=== PATIENT | female | born 1950 | race Caucasian/White ===

== ENCOUNTER 2023-04-13 13:07 | Inpatient (IN) | payer MEDICARE, OTHER, SELFPAY ==
[2023-04-13] VITALS (10 sets, daily range): BP systolic 135–184; BP diastolic 90–115; PULSE 60–72; RESP 13–18; TEMP 36.2–37.1; O2SAT 90–99; BMI 21.0; BMI 22.4
--- NOTE | 2023-04-13 13:41 | CRLHL7_ITS ---
For Patients: As a result of the Century Cures Act, medical imaging exams and procedure reports are released immediately into your electronic medical record. You may view this report before your referring provider. If you have questions, please contact your health care provider. Indication: Syncope. Technique: PA and lateral (2) views of the chest. Comparison: None available Findings: Normal heart and mediastinum. Lungs and pleural spaces clear. No acute or aggressive osseous abnormality. Impression: Normal chest radiograph. Dictated by Sohan Calvo MD @ 04/13/2023 2:41:24 PM (Electronically Signed)
--- NOTE | 2023-04-13 13:54 | ED_ITS ---
HPI - General Adult General Time Seen by Provider: 13:54 Date Seen: 04/13/23 Chief complaint: Syncope/Fainted Stated complaint: hypertension, vertigo, fainting Time Seen by Provider: 04/13/23 13:27 Source: patient and family () Mode of arrival: ambulatory Limitations: no limitations History of Present Illness HPI narrative: Patient is a 72-year-old female with no pertinent medical problems presenting to the emergency department for fatigue and syncope. Patient states over the past 3 weeks she has been feeling fatigued and lightheaded. She has had 4 episodes of syncope. Two were unwitnessed. Her states for the unwitnessed once he walked into the room and found her on the ground unresponsive. Unsure how long she was down for. He was therefore her 2 other syncopal episodes. Both time she became unconscious for only a few seconds in the [place] and helped her to the ground. She does of proceeding lightheadedness before these for falls o ccur. She has a appointment scheduled with a primary care provider next week. Should she has fallen onto her left hip in left ribs but states there is only minimal pain at this time. There is large bruising. Patient denies ever having symptoms like this before. She does states she had fatigue similar to this in the past where she was told she had gastric ulcers and low hemoglobin. She did not have syncope at that time though. Denies chest pain, shortness of breath, abdominal pain, diarrhea, constipation, fevers, chills, headache, vision changes, numbness, weakness. Does admit to some nausea at this time Related Data Allergies Allergy/AdvReac Type Severity Reaction Status Date / Time No Known Drug Allergies Allergy Verified 04/13/23 13:17 Review of Systems Status of ROS: Reports: 10 or more systems reviewed and unremarkable except as noted in History and below [facility] Medical History (Updated 04/13/23 @ 16:01 by Dominik Suggs, DO) Fatigue ?R53.83 - Other fatigue (ICD-10) Nausea ?R11.0 - Nausea (ICD-10) Anemia ?D64.9 - Anemia, unspecified (ICD-10) Hypertension ?I10 - Essential (primary) hypertension (ICD-10) Social History Smoking Status: Never smoker Do you use any of these nicotine containing products: None Second hand tobacco smoke exposure: No How often do you have a drink containing alcohol: never AUDIT-C Alcohol total score: 0 Non-prescribed substance use: denies use Exam Narrative: Exam Narrative: Const: Well-nourished, Well-developed, in mild distress Eyes: PERRL, no conjunctival injection, and symmetrical lids ENMT: Atraumatic external nose and ears. Moist mucous membranes. Neck: Symmetric, trachea midline, No thyromegaly. CVS: RRR, No murmurs or gallops. Peripheral pulses 2+ and equal in all extremities RESP: Unlabored respiratory effort. Clear to auscultation bilaterally. GI: Nontender/Nondistended, No rebound or guarding. MSK:Extremities w/o deformity, Normal Active ROM Skin: Warm, Dry. Large bruise 0 0 left hip and bruising also noted to left lateral lower ribs Neuro: Normal Muscle tone, No focal neurological deficits. Psych: Awake, Alert, & Oriented x3. Appropriate mood and affect. Const: Vital Signs, click to edit/add: Vital Signs - 24 hr 04/13/23 13:18 04/13/23 13:30 04/13/23 14:00 Temperature 97.5 F L Pulse Rate [Pulse Oximeter] 67 69 66 Pulse Rate [orthos tatic lying Left P ulse Oximeter] Pulse Rate [orthos tatic sitting Left Pulse Oximeter] Pulse Rate [orthos tatic standing Pul se Oximeter] Respiratory Rate 18 13 14 Blood Pressure [Le ft Upper Arm] 171/103 H 152/99 H 147/99 H Blood Pressure [or thostatic lying Le ft Arm] Blood Pressure [or thostatic sitting Left Arm] Blood Pressure [or thostatic standing Left Arm] Pulse Oximetry 99 98 95 Oxygen Delivery Me thod Room Air Room Air Room Air 04/13/23 14:15 04/13/23 14:22 04/13/23 14:30 Temperature Pulse Rate [Pulse Oximeter] 63 64 Pulse Rate [orthos tatic lying Left P ulse Oximeter] 62 Pulse Rate [orthos tatic sitting Left Pulse Oximeter] 65 Pulse Rate [orthos tatic standing Pul se Oximeter] 70 Respiratory Rate 16 17 Blood Pressure [Le ft Upper Arm] 163/98 H 135/100 H Blood Pressure [or thostatic lying Le ft Arm] 163/98 H Blood Pressure [or thostatic sitting Left Arm] 156/103 H Blood Pressure [or thostatic standing Left Arm] 135/100 H Pulse Oximetry 95 97 Oxygen Delivery Me thod Room Air Room Air Course Vital Signs Vital signs: Initial Vital Signs Temperature 97.5 F L 04/13/23 13:18 Temperature Source Temporal Artery Scan 04/13/23 13:18 Pulse Rate 67 04/13/23 13:18 Pulse Rhythm Regular 04/13/23 13:18 Respiratory Rate 18 04/13/23 13:18 Blood Pressure 171/103 H 04/13/23 13:18 Blood Pressure Mean 125 H 04/13/23 13:18 Blood Pressure Position Supine 04/13/23 13:18 Pulse Oximetry 99 04/13/23 13:18 Oxygen Delivery Method Room Air 04/13/23 13:18 Vital Signs Temperature 97.5 F L 04/13/23 13:18 Pulse Rate 67 04/13/23 13:18 Respiratory Rate 18 04/13/23 13:18 Blood Pressure 171/103 H 04/13/23 13:18 Pulse Oximetry 99 04/13/23 13:18 Oxygen Delivery Method Room Air 04/13/23 13:18 Temperature 97.5 F L 04/13/23 13:18 Pulse Rate 64 04/13/23 14:30 Respiratory Rate 17 04/13/23 14:30 Blood Pressure 135/100 H 04/13/23 14:30 Pulse Oximetry 97 04/13/23 14:30 Oxygen Delivery Method Room Air 04/13/23 14:30 Medical Decision Making MDM Narrative Medical decision making narrative: Patient is a 72-year-old female with no pertinent medical issues presented emergency department for multiple episodes of syncope. She is on steroids causing his syncope and gone for the past 3 weeks she has also been having fatig ue. She has fallen 4 times in that time secondary to the syncope. She has never had syncope before. No known heart issues. CBC, CMP, troponin, EKG, chest x-ray were all ordered. Also ordered orthostatic blood pressures. Patient's EKG showed no concerning abnormalities. Patient's orthostatic blood pressures were positive and fluids were started. Before fluids were started though her sodium returned at 01:23. Restart her on normal saline 150 mL/hr. I then ordered urinalysis with urine sodium, urine osmolality, urine creatinine and along with serum osmolality insert magnesium and phosphorus. Patient's magnesium is slightly low. I am unsure why the patient has low sodium. Chest x-ray shows no signs of tumors. Patient be admitted to the hospitalist service for admission. She is agreeable to this plan Lab Data Labs: Lab Results 04/13/23 04/13/23 Range/Units 13:50 14:56 WBC 4.86 (4.50-11.00) K/uL RBC 3.51 L (4.00-5.20) m/uL Hgb 12.0 (12.0-16.0) gm/dL Hct 34.6 (33.0-51.0) % MCV 99 (80-100) fL MCH 34 (26-34) pg MCHC 35 (32-36) gm/dL RDW Coeff of Brianda 12.4 (11.5-15.5) % Plt Count 159 (140-440) K/uL Neut % (Auto) 62.0 (42.0-72.0) % Lymph % (Auto) 21.2 (20-44) % [place] % (Auto) 15.4 H (0.0-11.0) % Eos % (Auto) 0.6 (0.0-7.0) % Baso % (Auto) 0.2 (0.0-3.0) % Neut # (Auto) 3.01 (1.7-7.0) K/uL Lymph # (Auto) 1.03 (0.90-2.90) K/uL [place] # (Auto) 0.70 (0.00-0.90) K/UL Eos # (Auto) 0.03 (0.00-0.50) K/uL Baso # (Auto) 0.01 (0.00-0.30) K/uL Abs Immat Gran (auto) 0.03 (0.00-0.30) K/uL Imm/Tot Granulo (auto) 0.6 % Sodium 123 L* (135-149) mmol/L Potassium 4.2 (3.6-5.1) mmol/L Chloride 90 L (96-114) mmol/L Carbon Dioxide 24 (20-32) mmol/L BUN 8 (7-30) mg/dL Creatinine 0.7 (0.5-1.5) mg/dL Estimated Creat Clear 45.95 Estimated GFR 91 ml/min Glucose 103 (60-115) mg/dL Calcium 9.5 (8.4-10.6) mg/dL Phosphorus 4.1 (2.5-4.5) mg/dL Magnesium 1.2 L (1.5-2.6) mg/dL Total Bilirubin 1.1 (0.1-1.5) mg/dL AST 141 H (12-35) U/L ALT 84 H (4-35) U/L Alkaline Phosphatase 73 (40-150) U/L Troponin I < 0.01 L (0.01-0.04) ng/mL NT-Pro-B Natriuret Pep 483 pg/mL Total Protein 7.4 (6.0-8.3) g/dL Albumin 4.3 (3.3-5.0) g/dL TSH 1.820 (0.270-4.20) uIU/mL Urine Color Yellow (Yellow) Urine Appearance Slightly Cloudy A (Clear) Urine pH 7.0 (5.0-8.5) Ur Specific [place] 1.010 (1.000-1.030) Urine Protein Negative (Negative) Urine Glucose (UA) Negative (Negative) Urine Ketones Negative (Negative) Urine Blood Trace-intact A (Negative) Urine Nitrite Negative (Negative) Urine Bilirubin Negative (Negative) Urine Urobilinogen 0.2 (0.2-1.0) Ur Leukocyte Esterase 2+ A (Negative) Urine RBC 2-5 A (0-2) Urine WBC 10-25 A (0-5) Ur Squamous Epith Cells Few (None-Few) Urine Bacteria Many A (None) Ur Random Creatinine 57 mg/dL Lab Acknowledgement Test Added ECG Data Attestation: I personally reviewed and interpreted this ECG as follows: (Normal sinus rhythm, rate of 82 beats per minute, normal intervals, normal axis, no ST or T-wave abnormalities) Discharge Plan Discharge Clinical Impression: Syncope, Acute hyponatremia Patient Disposition: Admitted As Inpatient Condition: Stable Follow Up/Referrals: Eamon Anders MD [Primary Care Provider] -
[2023-04-13 13:55] LABS: Basophils Absolute Auto 0.01 K/uL (0.00-0.30); Basophils Percent Auto 0.2 % (0.0-3.0); Eosinophils Absolute Auto 0.03 K/uL (0.00-0.50); Eosinophils Percent Auto 0.6 % (0.0-7.0); Hematocrit 34.6 % (33.0-51.0); Immature Granulocytes Abs Auto 0.03 K/uL (0.00-0.30); Immature Granulocytes Pct Auto 0.6 %; Lymphocytes Absolute Auto 1.03 K/uL (0.90-2.90); Lymphocytes Percent Auto 21.2 % (20-44); Mean Corpuscular HGB Conc 35 gm/dL (32-36); Mean Corpuscular Hemoglobin 34 pg (26-34); Mean Corpuscular Volume 99 fL (80-100); Monocytes Percent Auto 15.4 % (0.0-11.0); Neutrophils Absolute Auto 3.01 K/uL (1.7-7.0); Platelet Count* 159 K/uL (140-440); RDW Coefficient of Variation % 12.4 % (11.5-15.5); Red Blood Count 3.51 m/uL (4.00-5.20); White Blood Count* 4.86 K/uL (4.50-11.00)
[2023-04-13 13:59] LABS: Slide Review Reflex No
[2023-04-13 14:13] LABS: Albumin* 4.3 g/dL (3.3-5.0); Chloride* 90 mmol/L (96-114)
[2023-04-13 14:14] LABS: Potassium* 4.2 mmol/L (3.6-5.1)
[2023-04-13 14:16] LABS: Alkaline Phosphatase* 73 U/L (40-150); Aspartate Amino Transferase* 141 U/L (12-35); Bilirubin Total* 1.1 mg/dL (0.1-1.5); Blood Urea Nitrogen* 8 mg/dL (7-30); Carbon Dioxide* 24 mmol/L (20-32); Creatinine* 0.7 mg/dL (0.5-1.5); Est. Creatinine Clearance* 45.95; Estimated Glomerular Filt Rate 91 ml/min; Total Protein* 7.4 g/dL (6.0-8.3)
[2023-04-13 14:17] LABS: Alanine Aminotransferase* 84 U/L (4-35); Calcium* 9.5 mg/dL (8.4-10.6); Glucose* 103 mg/dL (60-115)
[2023-04-13 14:28] LABS: NT Pro B Type NatriureticPept* 483 pg/mL
[2023-04-13 14:29] LABS: Sodium* 123 mmol/L (135-149); Troponin I* < 0.01 ng/mL (0.01-0.04)
[2023-04-13] MEDS: 0.9 % SODIUM CHLORIDE 1000 ml 1,000 ML 150 ML IV (14:59)
[2023-04-13 15:10] LABS: Appearance Urine Slightly Cloudy (Clear); Bilirubin Urine Negative (Negative); Blood Urine Trace-intact (Negative); Color Urine Yellow (Yellow); Glucose Urine Negative (Negative); Ketones Urine Negative (Negative); Leukocyte Esterase Urine 2+ (Negative); Nitrite Urine Negative (Negative); Protein Urine Negative (Negative); Urobilinogen Urine 0.2 (0.2-1.0)
[2023-04-13 15:13] LABS: Magnesium* 1.2 mg/dL (1.5-2.6); Phosphorus* 4.1 mg/dL (2.5-4.5)
[2023-04-13 15:36] LABS: Bacteria Urine Many; Squamous Epithelial Cell Urine Few (None-Few)
--- NOTE | 2023-04-13 15:48 | ED.NURSE ---
Hospitalist at bedside.
[2023-04-13 15:59] LABS: Creatinine Urine Random 57 mg/dL
--- NOTE | 2023-04-13 16:30 | ED.NURSE ---
will go to 255. report was given vinay mcintosh.
--- NOTE | 2023-04-13 16:35 | ED.NURSE ---
to 255 via w/c after stopping at the bathroom to void. will start 24 hr creatinine clearance test. Janene mcintosh aware.
[2023-04-13 17:55] LABS: Lipase* 470 U/L (23-300)
[2023-04-13 18:07] LABS: Sodium* 125 mmol/L (135-149)
[2023-04-13] MEDS: PANTOPRAZOLE SODIUM 40 MG INJ IVP (18:52)
[2023-04-13] MEDS: SODIUM CHLORIDE 0.9 % (FLUSH) 10 ML SYRINGE 5 ML IVF ×2 (18:52→20:45)
--- NOTE | 2023-04-13 18:52 | P.IMHP_ITS ---
Hospitalist- H&P: HPI History of Present Illness Time Seen by Provider: 16:00 Date Seen: 04/13/23 Chief complaint: hypertension, vertigo, fainting Narrative: Nunu Pulido is a 72 year old woman who lives at home with her and presents with the 6+ month history of not feeling well with a sense of fatigue, sick feeling in her stomach with intermittent nausea without vomiting, who for the last 2-3 weeks has become increasingly fatigued, with orthostasis, and has had for brief episodes of syncope in association with orthostasis. The syncopal episodes occur only when she attempts to transfer from sitting to standing or while standing and walking. To these were witnessed by her . One of these episodes the found her on the floor shortly after the incident occurred. One of these episodes she was found on the floor and is unclear how long she was on the floor. One of these episodes she landed on her left side and has fairly large bruise on the left side of her chest and abdomen from this. Has had no lacerations. Over the course of the last 2-3 weeks she has noted a sense of increasing fatigue such that when she gets up to move about in the home she then needs to rest before she can get up and move about again. Concurrently she has had the increasing episodes of orthostasis as well. She and her tell me how she has had very little interest in eating over the last 2-3 weeks. She likes to drink water. She typically drinks 5-6 16 oz glasses of water daily. Additionally she drinks 2-6 glasses of alcoholic cocktails daily. There are days when she does not eat at all. She does not weigh herself and is uncertain as to whether not she is gaining or losing weight during this time frame. Denies abdominal pain. Denies hematemesis or hematochezia. Denies melena. Denies any other blood loss. Review of Systems Status of ROS: Reports: 10 or more systems reviewed and unremarkable except as noted in History and below Narrative: Denies fevers, rigors, diaphoresis. Denies lower gastrointestinal tract symptoms. Denies constipation or diarrhea. Denies dysuria, urgency, frequency, hematuria. Denies polyuria, polydipsia, polyphagia. Denies night sweats. Denies focal motor neurologic deficits. I review her outside medical records and see that she has had complications from alcohol abuse for some time. She denies history of alcohol withdrawal. Has attempted to cut back in the past but has not stopped drinking altogether. Has always resumed her increased consumption of alcohol within a relatively short period of time subsequently. Transthoracic echocardiogram obtained on 11/02/2022 demonstrated normal left ventricular chamber size, mildly increased wall thickness, normal global systolic function with calculated ejection fraction of 64%. Remainder of exam unremarkable. This study was obtained in association with patient complaint of orthostasis. Has not had upper gastrointestinal imaging in the past. Has had elevated transaminases in the past. Retired. 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 Lives with her . They have been together for 5 years. His name is Shawn. She designates her son, Carlos Pulido, as her primary power of biochemistry specialist for health should that be required, cell phone [phone]. She designates lily as her secondary power of biochemistry specialist should that be required, cell phone [phone]. She requests full resuscitation in the event of cardiopulmonary demise. She makes it very clear that she does not want to be kept alive in a persistent vegetative state. Indicates Dr. Anders is her primary care physician. [facility] Medical History (Updated 04/13/23 @ 19:24 by Layton Pardo MD) Hypertensive cardiomyopathy ?I11.9 - Hypertensive heart disease without heart failure (ICD-10) ?I43 - Cardiomyopathy in diseases classified elsewhere (ICD-10) Adenomatous colon polyp ?D12.6 - Benign neoplasm of colon, unspecified (ICD-10) Gastric ulcer with hemorrhage ?K25.4 - Chronic or unspecified gastric ulcer with hemorrhage (ICD-10) Abnormal liver enzymes ?R74.8 - Abnormal levels of other serum enzymes (ICD-10) Osteoporosis ?M81.0 - Age-related osteoporosis without current pathological fracture (ICD- 10) Alcohol abuse ?F10.10 - Alcohol abuse, uncomplicated (ICD-10) Essential hypertension ?I10 - Essential (primary) hypertension (ICD-10) Anemia ?D64.9 - Anemia, unspecified (ICD-10) Surgical History (Updated 04/13/23 @ 18:52 by Layton Pardo MD) Status post tonsillectomy ?Z90.89 - Acquired absence of other organs (ICD-10) S/P colonoscopy ?Z98.890 - Other specified postprocedural states (ICD-10) S/P breast lumpectomy ?Z98.890 - Other specified postprocedural states (ICD-10) Social History What is your current living situation?: I presently have a place to live Problems where you live: no known problems Problems where you live details: N/A In the past 12 months, utilities in danger of being shut off: no In the past 12 mos, have been you worried that your food would run out before you had money to buy more?: never true In the past 12 mos, the food you bought just didn't last and you didn't have money to buy more?: never true Smoking Status: Never smoker Do you use any of these nicotine containing products: None Second hand tobacco smoke exposure: No How often do you have a drink containing alcohol: never AUDIT-C Alcohol total score: 0 Non-prescribed substance use: denies use How often does anyone, including family, friends and others, physically hurt you : never How often does anyone, including family, friends and others, insult or talk down to you: never How often does anyone, including family, friends and others, threaten you with harm: never How often does anyone, including family, friends and others, scream or curse at you: never Meds Home Medications and Allergies Home Medications Medication Instructions Recorded Confirmed Type atenolol 25 mg tablet 25 mg PO DAILY 04/13/23 04/13/23 History losartan 100 mg tablet 100 mg PO DAILY 04/13/23 04/13/23 History omeprazole 20 mg capsule,delayed 20 mg PO BID 04/13/23 04/13/23 History release Allergies Allergy/AdvReac Type Severity Reaction Status Date / Time No Known Drug Allergies Allergy Verified 04/13/23 13:17 Exam Narrative: Exam Narrative: I evaluate her in the emergency department. She appears comfortable and in no acute distress. Alert, oriented to self, place, time, situation. Friendly, cooperative, articulate. Mood and affect are congruent. Oddly, she does not seem anxious or frightened about the multiple syncopal episodes that she has had. As best as I can tell she is in today in great measure because her finally forced her to come in for assessment, she previously did not want to be assessed for this at all. Vision and hearing are grossly normal. Normal tympanic membranes bilaterally. Midline nasal septum. Dentition in fair repair. No icterus or conjunctival injection. Pupils are equally round and reactive to light and accommodation. Extraocular muscles are intact. No jaundice, petechiae, or cyanosis. No rashes. Neck is supple. Midline trachea. Normal thyroid. No JVD or hepatojugular reflux. No carotid bruits. No lymphadenopathy in the pre or postauricular chains, anterior or posterior cervical chains, submandibular or submental fossa, supra or infraclavicular fossa, or axilla bilaterally. Lungs are clear to auscultation without wheezing, rhonchi, or rales. No CVA tenderness. No tenderness to palpation over her spine. Ecchymosis along the left side of her chest and abdomen. Heart tones with regular rhythm, normal S1-S2, without murmur, gallop, or rub. PMI is not laterally displaced. Abdomen with active bowel sounds, soft, nontender. No rebound or guarding. No organomegaly or masses. Extremities without edema. Palpable pulses upper and lower extremities. Capillary refill less than 3 seconds upper and lower extremities. No focal motor neurologic deficits. I do not test her standing or walking at this time. Const: Vital Signs, click to edit/add: Vital Signs - 24 hr 04/13/23 13:18 04/13/23 13:30 04/13/23 14:00 Temperature 97.5 F L Pulse Rate Pulse Rate [Left R adial] Pulse Rate [Pulse Oximeter] 67 69 66 Pulse Rate [orthos tatic lying Left P ulse Oximeter] Pulse Rate [orthos tatic sitting Left Pulse Oximeter] Pulse Rate [orthos tatic standing Pul se Oximeter] Respiratory Rate 18 13 14 Blood Pressure [Le ft Arm] Blood Pressure [Le ft Upper Arm] 171/103 H 152/99 H 147/99 H Blood Pressure [or thostatic lying Le ft Arm] Blood Pressure [or thostatic sitting Left Arm] Blood Pressure [or thostatic standing Left Arm] Pulse Oximetry 99 98 95 Oxygen Delivery Me thod Room Air Room Air Room Air 04/13/23 14:15 04/13/23 14:22 04/13/23 14:30 Temperature Pulse Rate Pulse Rate [Left R adial] Pulse Rate [Pulse Oximeter] 63 64 Pulse Rate [orthos tatic lying Left P ulse Oximeter] 62 Pulse Rate [orthos tatic sitting Left Pulse Oximeter] 65 Pulse Rate [orthos tatic standing Pul se Oximeter] 70 Respiratory Rate 16 17 Blood Pressure [Le ft Arm] Blood Pressure [Le ft Upper Arm] 163/98 H 135/100 H Blood Pressure [or thostatic lying Le ft Arm] 163/98 H Blood Pressure [or thostatic sitting Left Arm] 156/103 H Blood Pressure [or thostatic standing Left Arm] 135/100 H Pulse Oximetry 95 97 Oxygen Delivery Me thod Room Air Room Air 04/13/23 16:51 04/13/23 18:32 Temperature 97.2 F L Pulse Rate 60 Pulse Rate [Left R adial] 70 Pulse Rate [Pulse Oximeter] Pulse Rate [orthos tatic lying Left P ulse Oximeter] Pulse Rate [orthos tatic sitting Left Pulse Oximeter] Pulse Rate [orthos tatic standing Pul se Oximeter] Respiratory Rate 16 Blood Pressure [Le ft Arm] 184/115 H Blood Pressure [Le ft Upper Arm] Blood Pressure [or thostatic lying Le ft Arm] Blood Pressure [or thostatic sitting Left Arm] Blood Pressure [or thostatic standing Left Arm] Pulse Oximetry 95 Oxygen Delivery Me thod Room Air Hospitalist - H&P: Result Labs Labs: Short CBC 04/13/23 Range/Units 13:50 WBC 4.86 (4.50-11.00) K/uL Hgb 12.0 (12.0-16.0) gm/dL Hct 34.6 (33.0-51.0) % Plt Count 159 (140-440) K/uL BMP 04/13/23 04/13/23 13:50 17:47 Sodium 123 L* 125 L Potassium 4.2 Chloride 90 L Carbon Dioxide 24 BUN 8 Creatinine 0.7 Glucose 103 Calcium 9.5 Cardiac Enzymes 04/13/23 Range/Units 13:50 Troponin I < 0.01 L (0.01-0.04) ng/mL Liver Function 04/13/23 Range/Units 13:50 Total Bilirubin 1.1 (0.1-1.5) mg/dL AST 141 H (12-35) U/L ALT 84 H (4-35) U/L Alkaline Phosphatase 73 (40-150) U/L Albumin 4.3 (3.3-5.0) g/dL Urine 04/13/23 Range/Units 14:56 Urine Color Yellow (Yellow) Urine Appearance Slightly Cloudy A (Clear) Urine pH 7.0 (5.0-8.5) Ur Specific [place] 1.010 (1.000-1.030) Urine Protein Negative (Negative) Urine Glucose (UA) Negative (Negative) Imaging Chest x-ray: Attestation: I have reviewed the pertinent imaging results. Radiologist's impression: No acute abnormalities. No fractures noted. Assessment and Plan Assessment and plan (1) Acute hyponatremia: Problem comment: Multifactorial: Large volume of water intake, consumption of large volumes of alcohol, poor oral intake of food. Status: Acute (2) Orthostatic hypotension: Status: Acute (3) Syncope: Problem comment: Due to orthostatic hypotension. Status: Acute (4) Nausea: Problem comment: Etiology unclear. Differential diagnosis includes alcohol-induced gastritis, Helicobacter pylori gastropathy, alcoholic hepatitis, alcoholic pancreatitis, etc. Status: Acute (5) Fatigue: Status: Acute (6) Alcoholism: Problem comment: Pre contemplative about seeking help for this. Status: Acute Plan 1. Reviewed impression with patient and her . 2. 1 L of normal saline IV. Recheck serum sodium. 1500 mL fluid restriction daily. Goal to slowly increase serum sodium. 3. CIWA driven protocol for alcohol withdrawal. Initiate gabapentin preemptively 300 mg p.o. b.i.d. in an effort to try to lower risk of alcohol withdrawal. Consider phenobarbital as well. 4. Continue with beta-kinsey and angiotensin receptor kinsey as she is presently on. 5. Telemetry. No need to repeat echocardiogram performed in October of this year. Monitor orthostatic blood pressures and pulses. 6. Initiate thiamine, folate, multivitamin. 7. Physical therapy consultation. 8. Ultrasound of abdomen to assess liver in particular. Consider esophageal gastroduodenoscopy on Saturday. Single dose of pantoprazole 40 mg IV now. Start omeprazole 40 mg every morning. 9. Patient agreeable to above stated plans and recommendations.
[2023-04-13 19:58] LABS: Amphetamine Screen Urine Negative (Negative); Barbiturate Screen Urine Negative (Negative); Benzodiazepines Screen Urine Negative (Negative); Cannabinoid Screen Urine Negative (Negative); Cocaine Screen Urine Negative (Negative); Methadone Screen Urine Negative (Negative); Methamphetamines Screen Urine Negative (Negative); Opiate Screen Urine Negative (Negative); Oxycodone Screen Urine Negative (Negative); Phencyclidine Screen Urine Negative (Negative); Tricyclic Antidepressant Urine Negative (Negative)
[2023-04-13] MEDS: THIAMINE 100 MG TABLET 250 MG PO (20:42)
[2023-04-13] MEDS: GABAPENTIN 300 MG CAPSULE PO (20:43)
[2023-04-14] VITALS (10 sets, daily range): BP systolic 91–164; BP diastolic 72–101; PULSE 62–97; RESP 16–18; TEMP 36.8–37.1; O2SAT 94–96
[2023-04-14] MEDS: OMEPRAZOLE 20 MG CAPSULE DR 40 MG PO (06:36)
[2023-04-14 07:09] LABS: HCO3 VBG 27 mmol/L (21-28); Lactate* 0.6 mmol/L (0.5-1.9); PCO2 VBG 46 mmHG (40-50); PO2 VBG 22.5 mmHG (25-47)
[2023-04-14 07:19] LABS: Hematocrit 34.9 % (33.0-51.0); Hemoglobin* 11.8 gm/dL (12.0-16.0); Mean Corpuscular HGB Conc 34 gm/dL (32-36); Mean Corpuscular Hemoglobin 34 pg (26-34); Mean Corpuscular Volume 101 fL (80-100); Platelet Count* 165 K/uL (140-440); Red Blood Count 3.46 m/uL (4.00-5.20); White Blood Count* 4.84 K/uL (4.50-11.00)
--- NOTE | 2023-04-14 07:21 | PM.IMPN1 ---
Progress Note: A&P Assessment and plan (1) Acute hyponatremia: Problem details: Multifactorial: Large volume of water intake, consumption of large volumes of alcohol, poor oral intake of food. Status: Acute (2) Orthostatic hypotension: Problem details: Persists. Will order echo for 04/15. Status: Acute (3) Syncope: Problem details: Potentially, primarily due to orthostatic hypotension. Status: Acute (4) Nausea: Problem details: Etiology unclear. Differential diagnosis includes alcohol-induced gastritis, Helicobacter pylori gastropathy, alcoholic hepatitis, alcoholic pancreatitis, etc. Status: Acute (5) Fatigue: Problem details: multifactorial Status: Acute (6) Alcoholism: Problem details: Pre contemplative about seeking help for this. Status: Acute (7) Hypomagnesemia: Problem details: Replaced with 4 g over 4 hours this morning. Status: Acute (8) HTN (hypertension): Problem details: Atenolol and losartan from her home list have been continued. Status: Acute Subjective Date Seen: 04/14/23 Interval history: Daily Progress Note - Hospital Medicine Day #: 2 CC: Orthostasis, chronic alcoholism, hypomag, hyponatremia OVERNIGHT UPDATES FROM STAFF & MED, LAB, IMAGING UPDATES Sodium is up trending slowly. One hundred twenty-three, 125, 129. Magnesium is being replaced by IV today. Blood pressures are orthostatic. ultrasound was completed this morning Ultrasound report: Increased echogenicity seen throughout the liver consistent with hepatic steatosis. Otherwise, no acute abnormalities identified. Blood pressure 152/100. Orthostatic left arm standing, drops to 91/77. Pulse 69. Respirations 16. Afebrile. 96% on room air. CBC: Hemoglobin 11.8, MCV 101 Sodium is up to 129. Normal creatinine. Magnesium 1.4 AST, ALT 100/72. Lipase 470 to 401 ECG reviewed Objective: Vitals: see above Lungs: Clear. Cardiac: S1S2. Disposition/Potential discharge - Likely to return to previous living situation. Total time is 35 minutes with greater than 50% spent in counseling and coordination of care. Exam Const: Vital Signs, click to edit/add: Vital Signs - 24 hr 04/13/23 13:18 04/13/23 13:30 04/13/23 14:00 Temperature 97.5 F L Pulse Rate Pulse Rate [Left R adial] Pulse Rate [Pulse Oximeter] 67 69 66 Pulse Rate [orthos tatic lying Left P ulse Oximeter] Pulse Rate [orthos tatic sitting Left Pulse Oximeter] Pulse Rate [orthos tatic standing Pul se Oximeter] Respiratory Rate 18 13 14 Blood Pressure [Le ft Arm] Blood Pressure [Le ft Upper Arm] 171/103 H 152/99 H 147/99 H Blood Pressure [or thostatic lying Le ft Arm] Blood Pressure [or thostatic sitting Left Arm] Blood Pressure [or thostatic standing Left Arm] Pulse Oximetry 99 98 95 Oxygen Delivery Me thod Room Air Room Air Room Air 04/13/23 14:15 04/13/23 14:22 04/13/23 14:30 Temperature Pulse Rate Pulse Rate [Left R adial] Pulse Rate [Pulse Oximeter] 63 64 Pulse Rate [orthos tatic lying Left P ulse Oximeter] 62 Pulse Rate [orthos tatic sitting Left Pulse Oximeter] 65 Pulse Rate [orthos tatic standing Pul se Oximeter] 70 Respiratory Rate 16 17 Blood Pressure [Le ft Arm] Blood Pressure [Le ft Upper Arm] 163/98 H 135/100 H Blood Pressure [or thostatic lying Le ft Arm] 163/98 H Blood Pressure [or thostatic sitting Left Arm] 156/103 H Blood Pressure [or thostatic standing Left Arm] 135/100 H Pulse Oximetry 95 97 Oxygen Delivery Me thod Room Air Room Air 04/13/23 16:51 04/13/23 18:32 04/13/23 19:10 Temperature 97.2 F L Pulse Rate 60 Pulse Rate [Left R adial] 70 Pulse Rate [Pulse Oximeter] Pulse Rate [orthos tatic lying Left P ulse Oximeter] Pulse Rate [orthos tatic sitting Left Pulse Oximeter] Pulse Rate [orthos tatic standing Pul se Oximeter] Respiratory Rate 16 16 Blood Pressure [Le ft Arm] 184/115 H Blood Pressure [Le ft Upper Arm] Blood Pressure [or thostatic lying Le ft Arm] Blood Pressure [or thostatic sitting Left Arm] Blood Pressure [or thostatic standing Left Arm] Pulse Oximetry 95 93 Oxygen Delivery Me thod Room Air Room Air 04/13/23 19:10 04/13/23 22:15 04/13/23 22:15 Temperature 98.8 F Pulse Rate Pulse Rate [Left R adial] 72 72 Pulse Rate [Pulse Oximeter] Pulse Rate [orthos tatic lying Left P ulse Oximeter] Pulse Rate [orthos tatic sitting Left Pulse Oximeter] Pulse Rate [orthos tatic standing Pul se Oximeter] Respiratory Rate 16 16 16 Blood Pressure [Le ft Arm] 137/90 H Blood Pressure [Le ft Upper Arm] Blood Pressure [or thostatic lying Le ft Arm] Blood Pressure [or thostatic sitting Left Arm] Blood Pressure [or thostatic standing Left Arm] Pulse Oximetry 93 90 Oxygen Delivery Me thod Room Air Room Air 04/13/23 22:15 04/14/23 03:05 Temperature 98.5 F 98.4 F Pulse Rate Pulse Rate [Left R adial] 68 62 Pulse Rate [Pulse Oximeter] Pulse Rate [orthos tatic lying Left P ulse Oximeter] Pulse Rate [orthos tatic sitting Left Pulse Oximeter] Pulse Rate [orthos tatic standing Pul se Oximeter] Respiratory Rate 18 16 Blood Pressure [Le ft Arm] 147/94 H 164/101 H Blood Pressure [Le ft Upper Arm] Blood Pressure [or thostatic lying Le ft Arm] Blood Pressure [or thostatic sitting Left Arm] Blood Pressure [or thostatic standing Left Arm] Pulse Oximetry 94 95 Oxygen Delivery Me thod Room Air Room Air Labs Labs: Laboratory Results - last 24 hr 04/13/23 04/13/23 04/13/23 13:50 13:50 14:56 WBC 4.86 RBC 3.51 L Hgb 12.0 Hct 34.6 MCV 99 MCH 34 MCHC 35 RDW Coeff of Brianda 12.4 Plt Count 159 Neut % (Auto) 62.0 Lymph % (Auto) 21.2 Leslie % (Auto) 15.4 H Eos % (Auto) 0.6 Baso % (Auto) 0.2 Neut # (Auto) 3.01 Lymph # (Auto) 1.03 Leslie # (Auto) 0.70 Eos # (Auto) 0.03 Baso # (Auto) 0.01 Abs Immat Gran (auto) 0.03 Imm/Tot Granulo (auto) 0.6 VBG pH VBG pCO2 VBG pO2 VBG HCO3 Sodium 123 L* Potassium 4.2 Chloride 90 L Carbon Dioxide 24 BUN 8 Creatinine 0.7 Estimated Creat Clear 45.95 Estimated GFR 91 Glucose 103 Lactate Calcium 9.5 Phosphorus 4.1 Magnesium 1.2 L Total Bilirubin 1.1 AST 141 H ALT 84 H Alkaline Phosphatase 73 Troponin I < 0.01 L NT-Pro-B Natriuret Pep 483 Total Protein 7.4 Albumin 4.3 Lipase 470 H TSH 1.820 Urine Color Yellow Urine Appearance Slightly Cloudy A Urine pH 7.0 Ur Specific [place] 1.010 Urine Protein Negative Urine Glucose (UA) Negative Urine Ketones Negative Urine Blood Trace-intact A Urine Nitrite Negative Urine Bilirubin Negative Urine Urobilinogen 0.2 Ur Leukocyte Esterase 2+ A Urine RBC 2-5 A Urine WBC 10-25 A Ur Squamous Epith Cells Few Urine Bacteria Many A Ur Random Creatinine 57 Urine Opiates Screen Ur Oxycodone Screen Urine Methadone Screen Ur Propoxyphene Screen Ur Barbiturates Screen U Tricyclic Antidepress Ur Phencyclidine Scrn Ur Amphetamines Screen U Methamphetamines Scrn U Benzodiazepines Scrn Urine Cocaine Screen U Marijuana (THC) Screen Ur Drug Screen Comment Lab Acknowledgement Test Added Test Added 04/13/23 04/13/23 04/14/23 17:11 17:47 06:48 WBC RBC Hgb Hct MCV MCH MCHC RDW Coeff of Brianda Plt Count Neut % (Auto) Lymph % (Auto) Leslie % (Auto) Eos % (Auto) Baso % (Auto) Neut # (Auto) Lymph # (Auto) Leslie # (Auto) Eos # (Auto) Baso # (Auto) Abs Immat Gran (auto) Imm/Tot Granulo (auto) VBG pH 7.380 VBG pCO2 46 VBG pO2 22.5 L VBG HCO3 27 Sodium 125 L Potassium Chloride Carbon Dioxide BUN Creatinine Estimated Creat Clear Estimated GFR Glucose Lactate 0.6 Calcium Phosphorus Magnesium Total Bilirubin AST ALT Alkaline Phosphatase Troponin I NT-Pro-B Natriuret Pep Total Protein Albumin Lipase TSH Urine Color Urine Appearance Urine pH Ur Specific [place] Urine Protein Urine Glucose (UA) Urine Ketones Urine Blood Urine Nitrite Urine Bilirubin Urine Urobilinogen Ur Leukocyte Esterase Urine RBC Urine WBC Ur Squamous Epith Cells Urine Bacteria Ur Random Creatinine Urine Opiates Screen Negative Ur Oxycodone Screen Negative Urine Methadone Screen Negative Ur Propoxyphene Screen Negative Ur Barbiturates Screen Negative U Tricyclic Antidepress Negative Ur Phencyclidine Scrn Negative Ur Amphetamines Screen Negative U Methamphetamines Scrn Negative U Benzodiazepines Scrn Negative Urine Cocaine Screen Negative U Marijuana (THC) Screen Negative Ur Drug Screen Comment See Note Lab Acknowledgement
[2023-04-14 07:24] LABS: Slide Review Reflex No
--- NOTE | 2023-04-14 07:38 | PC.NURSE ---
Pt alert and oriented x3. Afebrile. Pt denies pain, chest pain, SOB, and vomiting. Pt reported nausea, antinausea medication was offered but pt refused stating ?I don?t want to take anything now but I want to see if it will go away on it?s own.? Scagliola Mechanic updated MD goldstein nausea worsened; ordered PRN Zofran. Pt?s nausea resolved w/o medications. Pt is up SBA to bathroom and chair. Pt was tolerating a 1500c fluid restriction from [id number] pt switch to NPO at 0000. Pt is voiding. Pt slept intermittently throughout night. ?
--- NOTE | 2023-04-14 08:00 | CRLHL7_ITS ---
For Patients: As a result of the Century Cures Act, medical imaging exams and procedure reports are released immediately into your electronic medical record. You may view this report before your referring provider. If you have questions, please contact your health care provider. INDICATION: Elevated LFTs TECHNIQUE: Ultrasound abdomen limited. Sonographic images of the right upper quadrant were obtained using paris-scale and color Doppler images. COMPARISON: None. FINDINGS: Liver: Increased echogenicity within the liver consistent with hepatic steatosis. No masses. No intrahepatic biliary dilatation. Gallbladder: No evidence of shadowing calculus. No sign of gallbladder wall thickening or pericholecystic fluid. Common bile duct: 6 mm. Pancreas: Unremarkable. Right kidney: Normal in size. Normal echotexture and cortex. No masses, stones, or hydronephrosis. Vasculature: Proximal abdominal aorta and IVC are normal. IMPRESSION: Increased echogenicity seen throughout the liver consistent with hepatic steatosis. Otherwise, no acute abnormalities identified. Dictated by Lyndon Calix MD @ 04/14/2023 9:22:13 AM (Electronically Signed)
[2023-04-14 08:02] LABS: Albumin* 3.8 g/dL (3.3-5.0); Chloride* 97 mmol/L (96-114); Potassium* 4.2 mmol/L (3.6-5.1); Sodium* 129 mmol/L (135-149)
[2023-04-14 08:04] LABS: Creatinine* 0.8 mg/dL (0.5-1.5); Estimated Glomerular Filt Rate 77 ml/min
[2023-04-14 08:05] LABS: Alanine Aminotransferase* 72 U/L (4-35); Alkaline Phosphatase* 61 U/L (40-150); Aspartate Amino Transferase* 100 U/L (12-35); Bilirubin Direct* 0.2 mg/dL (0.0-0.5); Bilirubin Total* 0.9 mg/dL (0.1-1.5); Blood Urea Nitrogen* 9 mg/dL (7-30); Calcium* 9.4 mg/dL (8.4-10.6); Carbon Dioxide* 27 mmol/L (20-32); Glucose* 91 mg/dL (60-115); Lipase* 401 U/L (23-300); Phosphorus* 4.2 mg/dL (2.5-4.5); Total Protein* 6.9 g/dL (6.0-8.3)
[2023-04-14 08:06] LABS: Magnesium* 1.4 mg/dL (1.5-2.6)
[2023-04-14 08:07] LABS: C Reactive Protein* 0.6 mg/dL (0.5-1.0)
[2023-04-14] MEDS: MAGNESIUM IV 4 GM/100 ML PIGGYBACK IVPB (09:27)
[2023-04-14] MEDS: LOSARTAN POTASSIUM 50 MG TABLET 100 MG PO (10:17)
[2023-04-14] MEDS: MULTIVITAMIN/MINERALS 1 TABLET 1 TAB PO (10:17)
[2023-04-14] MEDS: atenoloL 25 MG TABLET PO (10:17)
[2023-04-14] MEDS: THIAMINE 100 MG TABLET 250 MG PO ×2 (10:18→21:06)
[2023-04-14] MEDS: GABAPENTIN 300 MG CAPSULE PO ×2 (10:20→21:07)
[2023-04-14] MEDS: FOLIC ACID 1 MG TABLET PO (10:20)
[2023-04-14 10:32] LABS: Ethanol* < 0.01 % (0.01-0.03)
--- NOTE | 2023-04-14 13:24 | PC.NURSE ---
shift note: pt up sba with slight inbalace initially when standing. Pt denies dizziness, lightheadedness, c.p or pressure. changes noted in orthostatic vss this a.m reported to Dr. Clayton with no further orders. IV replaced to Lt upper arm. LS clr.
--- NOTE | 2023-04-14 17:28 | PC.NURSE ---
Shift Summary 14-: Patient pleasant and cooperative. Up with SBA, worked with PT this afternoon and walked in halls. Patient stated she has some dizziness when going from laying to standing but stated it quickly resolved.
[2023-04-14] MEDS: SODIUM CHLORIDE 0.9 % (FLUSH) 10 ML SYRINGE 5 ML IVF (21:07)
[2023-04-14] MEDS: MELATONIN 3 MG TABLET 6 MG PO (22:25)
[2023-04-14] MEDS: SERTRALINE 50 MG TABLET 25 MG PO (22:26)
[2023-04-15] VITALS (9 sets, daily range): BP systolic 98–145; BP diastolic 72–98; PULSE 62–82; RESP 14–16; TEMP 36.6–36.8; O2SAT 93–97
--- NOTE | 2023-04-15 06:26 | PC.NURSE ---
Pt alert and oriented x3. Afebrile. Pt denies pain, chest pain, SOB, and N/V.?CIWA?s have been between 0-2. Pt reported feeling restless, and pt asked if she could get Melatonin. MD was notified and MD ordered one time?dose of Sertraline and Melatonin. Pt was able to sleep.?Pt is up SBA to bathroom and chair. Pt was tolerating a regular diet and a 1500c fluid restriction. Pt is voiding. Pt slept throughout most of night. ?
[2023-04-15 06:49] LABS: Hematocrit 33.3 % (33.0-51.0); Hemoglobin* 11.1 gm/dL (12.0-16.0); Mean Corpuscular HGB Conc 33 gm/dL (32-36); Mean Corpuscular Hemoglobin 34 pg (26-34); Mean Corpuscular Volume 102 fL (80-100); Platelet Count* 170 K/uL (140-440); Red Blood Count 3.26 m/uL (4.00-5.20); White Blood Count* 5.18 K/uL (4.50-11.00)
[2023-04-15 06:58] LABS: INR 0.94 (0.91-1.10); Prothrombin Time 13.2 Seconds
[2023-04-15 07:01] LABS: Slide Review Reflex No
[2023-04-15 07:02] LABS: Albumin* 3.7 g/dL (3.3-5.0); Chloride* 100 mmol/L (96-114); Potassium* 3.9 mmol/L (3.6-5.1); Sodium* 131 mmol/L (135-149)
[2023-04-15 07:04] LABS: Bilirubin Total* 0.6 mg/dL (0.1-1.5); Carbon Dioxide* 26 mmol/L (20-32); Creatinine* 0.9 mg/dL (0.5-1.5); Estimated Glomerular Filt Rate 67 ml/min
[2023-04-15 07:05] LABS: Alanine Aminotransferase* 56 U/L (4-35); Alkaline Phosphatase* 65 U/L (40-150); Aspartate Amino Transferase* 67 U/L (12-35); Blood Urea Nitrogen* 14 mg/dL (7-30); Calcium* 9.4 mg/dL (8.4-10.6); Glucose* 104 mg/dL (60-115); Lipase* 550 U/L (23-300); Total Protein* 6.6 g/dL (6.0-8.3)
[2023-04-15 07:06] LABS: Magnesium* 2.2 mg/dL (1.5-2.6)
[2023-04-15 07:22] LABS: NT Pro B Type NatriureticPept* 506 pg/mL; Troponin I* < 0.01 ng/mL (0.01-0.04)
[2023-04-15] MEDS: OMEPRAZOLE 20 MG CAPSULE DR 40 MG PO (07:48)
[2023-04-15] MEDS: THIAMINE 100 MG TABLET 250 MG PO (09:06)
[2023-04-15] MEDS: SERTRALINE 50 MG TABLET 25 MG PO (09:06)
[2023-04-15] MEDS: GABAPENTIN 300 MG CAPSULE PO (09:07)
[2023-04-15] MEDS: FOLIC ACID 1 MG TABLET PO (09:07)
[2023-04-15] MEDS: MULTIVITAMIN/MINERALS 1 TABLET 1 TAB PO (09:07)
[2023-04-15] MEDS: atenoloL 25 MG TABLET PO (09:07)
[2023-04-15] MEDS: LOSARTAN POTASSIUM 50 MG TABLET 100 MG PO (09:07)
[2023-04-15] MEDS: SODIUM CHLORIDE 0.9 % (FLUSH) 10 ML SYRINGE 5 ML IVF (09:08)
--- NOTE | 2023-04-15 10:39 | PC.NURSE ---
Blood pressures obtained while supine and standing waiting with 2 min intervals. 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 BP's performed after walk in sitting and lying positions. Blood pressures WNL (see vitals), patient denied lightheadedness or dizziness. Patient also reporting feeling well without lightheadedness while working with therapy,.
[2023-04-15 10:53] LABS: Gamma Glutamyl Transpeptidase* 191 U/L (8-55)
--- NOTE | 2023-04-15 11:01 | NUTR.NU ---
RDN with MD consult for Miscellaneous. Per H&P, patient and her significant other note that the patient had very little interest in eating over the last 2-3 weeks. She likes to drink water. She typically drinks 5-6 16 oz glasses of water daily. Additionally she drinks 2-6 glasses of alcoholic cocktails daily. There are days when she does not eat at all. 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 RDN discussed the importance of adequate oral intake at meals and snacks. Discussed using the plate method for balanced meals that include ? plate non-starchy vegetables, ? plate protein, and 3-4 servings of carbohydrates per meal (fruit, whole grains, legumes, milk, yogurt). RDN discussed the chau roles of water, dangers of dehydration, how much water is needed, factors that influence water needs, to replace fluids drink more oral rehydration solutions, and staying safely hydrated. Handouts provided to support discussion. RDN contact information provided and encouraged patient to call with questions. RDN to follow up as needed.
--- NOTE | 2023-04-15 15:12 | PM.DS1 ---
DS: Providers Provider Date Seen: 04/15/23 Date of admission: 04/13/23 16:40 Primary care physician: Eamon Anders MD Admitting Clinician: Layton Pardo MD Consults: 04/13/23 17:11 Consult to Nutrition [CONS] Routine Comment: Reason for consult:: Miscellaneous Consult to Physical Therapy [CONS] Routine Comment: Reason(s) for PT Consult:: Evaluate Ambulation Any Restrictions?:: No Restrictions 04/13/23 21:05 Consult to Physical Therapy [CONS] Routine Comment: Reason(s) for PT Consult:: ACL Protocols Any Restrictions?:: No Restrictions Attending Physician on discharge: Oanh Clayton [facility] Date of Discharge: 04/15/23 DS: Diagnosis Discharge Diagnosis (1) Orthostatic hypotension: Status: Acute Problem details: Resolved by hospital day 2. She was ambulated and orthostatics were obtained which showed resolution of any orthostasis, presyncope or syncope. I suspect this was multifactorial: Poor p.o. intake, excessive alcohol, UTI, low Mag, low sodium (2) Syncope: Status: Acute Problem details: Potentially, primarily due to orthostatic hypotension. (3) Acute hyponatremia: Status: Acute Problem details: Multifactorial: Large volume of water intake, consumption of large volumes of alcohol, poor oral intake of food. Resolved by hospital day 2. Discharge sodium level 131. (4) Hypomagnesemia: Status: Acute Problem details: Replaced with 4 g over 4 hours 04/14 Discharge magnesium level 2.2 (5) Alcoholism: Status: Acute Problem details: Pre contemplative about seeking help for this. I have asked her to attempt a abstinence for 30 days (6) UTI (urinary tract infection): Status: Acute Problem details: Ceftriaxone x1 as an inpatient, oral antibiotics prescribed at discharge (7) Fatty liver: Status: Acute Problem details: Elevated LFTs and GGT. Ultrasound without biliary dilation. Likely from chronic alcohol intake. (8) HTN (hypertension): Status: Acute Problem details: Atenolol and losartan from her home list have been continued. DS: Summary Hospital Course Hospital Course: HOSPITALIST DISCHARGE SUMMARY ATTENDING PHYSICIAN: Oanh Clayton MD FINAL DIAGNOSIS: Excessive alcohol Fatty liver Hyponatremia Hypomagnesemia Orthostasis Syncope HOSPITAL FOLLOWUP ISSUES: 1. Alcohol abstinence. Patient was challenged to abstain from alcohol for 30 days. She is to follow-up with her PCP if she finds this difficult. 2. Electrolyte abnormalities. She should see her PCP for a follow-up in 1-2 weeks for follow-up sodium and magnesium level. 3. History of syncope and orthostasis, multifactorial, resolved REFERRALS WHILE ADMITTED: None REFERRALS AFTER DISCHARGE: Return to PCP BRIEF HOSPITAL COURSE: Genesis is a 72-year-old female who presented with syncope at home, generalized fatigue and weakness. She was diagnosed with acute hyponatremia within dean sodium level of 123. She also had hypomagnesemia and this was replaced. She has fairly significant orthostatic blood pressures which were likely multifactorial from recent excessive alcohol use, poor p.o. intake, electrolyte abnormalities. Her nausea resolved and she was able to eat. We continued her home blood pressure regimen and and by hospital day to her orthostasis had resolved. SUBSTANTIVE NOTATIONS ON IMAGING, LAB, MICROBIOLOGY/PATHOLOGY STUDIES: Sodium dean 123. Discharge sodium 131. Magnesium dean of 1.2, discharge magnesium 2.2 Elevated LFTs most likely related to chronic alcohol intake. GGT 191. Lipase elevated between 4 and 550. Pancreas unremarkable on ultrasound. Liver showed fatty infiltration throughout. Troponin undetectable, CRP normal Echo: DISCHARGE MEDICATIONS: See Reconciled list - SIGNIFICANT CHANGES: Thiamin, folic acid, multivitamin REVIEW OF SYSTEMS No new chest pain or dyspnea Pain controlled No voiding difficulties Tolerating diet challenge PHYSICAL EXAM: CONSTITUTIONAL: Much improved. Upbeat. VITAL SIGNS: see record. HEENT: Normocephalic, atraumatic. PERRL, EOMI, conjunctivae pink, no scleral icterus. Ears and nose externally normal. Pharynx normal. NECK: No JVD. No carotid bruit, no thyromegaly, no adenopathy. CHEST: Clear to auscultation bilaterally. HEART: S1 and S2 normal. Edema ABDOMEN: Soft, nontender. Normal bowel sounds. MUSCULOSKELETAL: No gross joint deformity or swelling. NEURO: Cranial nerves intact. Grossly intact. No asymmetric findings. SKIN: No rashes, petechiae, concerning changes PSYCHIATRIC: Mood euthymic. DISPOSITION: Home with significant other Time spent on discharge 37 minutes. Time Spent with Patient Time attestation: Total time spent providing and/or coordinating discharge services: Exam Const: Vital Signs, click to edit/add: Vital Signs - 24 hr 04/14/23 16:29 04/14/23 19:30 04/14/23 19:30 Temperature 98.6 F 98.6 F Pulse Rate [Left R adial] 78 78 Pulse Rate [orthos tatic lying Left P ulse Oximeter] 70 Pulse Rate [orthos tatic standing Pul se Oximeter] 83 Respiratory Rate 16 16 Blood Pressure [Le ft Arm] 116/78 116/78 Blood Pressure [Ri ght Arm] Blood Pressure [or thostatic lying Le ft Arm] 112/78 Blood Pressure [or thostatic standing Left Arm] 95/79 Pulse Oximetry 94 94 Oxygen Delivery Me thod Room Air Room Air 04/14/23 22:53 04/14/23 22:53 04/14/23 22:53 Temperature 98.4 F Pulse Rate [Left R adial] 75 75 Pulse Rate [orthos tatic lying Left P ulse Oximeter] Pulse Rate [orthos tatic standing Pul se Oximeter] Respiratory Rate 16 18 18 Blood Pressure [Le ft Arm] 135/94 H Blood Pressure [Ri ght Arm] Blood Pressure [or thostatic lying Le ft Arm] Blood Pressure [or thostatic standing Left Arm] Pulse Oximetry 94 94 Oxygen Delivery Me thod Room Air Room Air 04/15/23 03:00 04/15/23 07:50 04/15/23 07:50 Temperature 98.2 F 98.1 F 98.1 F Pulse Rate [Left R adial] 71 71 71 Pulse Rate [orthos tatic lying Left P ulse Oximeter] Pulse Rate [orthos tatic standing Pul se Oximeter] Respiratory Rate 16 14 14 Blood Pressure [Le ft Arm] 136/92 H Blood Pressure [Ri ght Arm] 145/98 H 145/98 H Blood Pressure [or thostatic lying Le ft Arm] Blood Pressure [or thostatic standing Left Arm] Pulse Oximetry 94 93 93 Oxygen Delivery Me thod Room Air Room Air Room Air 04/15/23 07:50 04/15/23 07:50 04/15/23 10:14 Temperature Pulse Rate [Left R adial] 71 64 Pulse Rate [orthos tatic lying Left P ulse Oximeter] Pulse Rate [orthos tatic standing Pul se Oximeter] Respiratory Rate 14 14 Blood Pressure [Le ft Arm] Blood Pressure [Ri ght Arm] 142/92 H Blood Pressure [or thostatic lying Le ft Arm] Blood Pressure [or thostatic standing Left Arm] Pulse Oximetry 93 Oxygen Delivery Me thod Room Air 04/15/23 10:18 04/15/23 10:26 04/15/23 10:35 Temperature Pulse Rate [Left R adial] 75 73 64 Pulse Rate [orthos tatic lying Left P ulse Oximeter] Pulse Rate [orthos tatic standing Pul se Oximeter] Respiratory Rate Blood Pressure [Le ft Arm] Blood Pressure [Ri ght Arm] 125/93 H 130/87 145/93 H Blood Pressure [or thostatic lying Le ft Arm] Blood Pressure [or thostatic standing Left Arm] Pulse Oximetry Oxygen Delivery Me thod 04/15/23 11:57 Temperature 98 F Pulse Rate [Left R adial] 73 Pulse Rate [orthos tatic lying Left P ulse Oximeter] Pulse Rate [orthos tatic standing Pul se Oximeter] Respiratory Rate 16 Blood Pressure [Le ft Arm] Blood Pressure [Ri ght Arm] 111/74 Blood Pressure [or thostatic lying Le ft Arm] Blood Pressure [or thostatic standing Left Arm] Pulse Oximetry 97 Oxygen Delivery Me thod Room Air DS: Data Data Completed and Pending Labs on day of discharge: Labs from last 24 hours 04/15/23 05:56 WBC 5.18 RBC 3.26 L Hgb 11.1 L Hct 33.3 MCV 102 H MCH 34 MCHC 33 Plt Count 170 INR 0.94 Sodium 131 L Potassium 3.9 Chloride 100 Carbon Dioxide 26 BUN 14 Creatinine 0.9 Estimated Creat Clear 46.20 Estimated GFR 67 Glucose 104 Calcium 9.4 Magnesium 2.2 Total Bilirubin 0.6 GGT 191 H AST 67 H ALT 56 H Alkaline Phosphatase 65 Troponin I < 0.01 L NT-Pro-B Natriuret Pep 506 Total Protein 6.6 Albumin 3.7 Lipase 550 H Discharge Plan Discharge Disposition: Home w/ Parent or Adult Date of Admission: 04/13/23 16:40 Attending Provider on Discharge: Oanh Clayton Primary Care Provider: Eamon Anders Condition: Stable Anticipated Discharge Date/Time: 04/15/23 12:45 Discharge Medications: New folic acid 1 mg Tablet 1 mg PO DAILY Qty: 30 0RF sertraline 50 mg Tablet 25 mg PO DAILY Qty: 30 0RF Rx Instructions: INCREASE TO 50MG (1 FULL TAB) ON 04/23/23 thiamine mononitrate (vit B1) [Vitamin B-1 (mononitrate)] 100 mg Tablet 250 mg PO BID Qty: 60 0RF multivitamin with folic acid [Thera] 400 mcg Tablet 1 tab PO DAILY Qty: 100 0RF Continued atenolol 25 mg tablet 25 mg PO DAILY omeprazole 20 mg capsule,delayed release(DR/EC) 20 mg PO BID losartan 100 mg tablet 100 mg PO DAILY triamcinolone acetonide 0.1 % cream 1 applic topical BID PRN vitamin B complex [Vitamins B Complex] Tablet 1 tab PO DAILY cholecalciferol (vitamin D3) 25 mcg (1,000 unit) capsule 25 mcg PO DAILY ferrous sulfate 325 mg (65 mg iron) tablet 325 mg PO DAILY Discharge Orders: Discharge Order (Routine); Ordered 04/15/23 Ordered By: Layton Pardo Patient Education: Thiamine (By mouth), Folic Acid (By mouth), Multivitamins, Adult Formula (By mouth), Sertraline (By mouth), Hyponatremia (DC), Syncope (DC), Hypertension (DC) Additional Instructions: 1. No alcohol for 30 days. Assess how you feel during this break from drinking. If you can't go the 30 days - please speak to your PCP regarding ongoing coping mechanisms. 2. Keep the high blood pressure medications (Losartan and atenolol) the same. 3. I'd like you to take thiamine, folic acid and a multivitamin for supplementations. 4. Keep your free water intake to less than 80oz daily. 5. Keep appointment with Dr. Anders as already set for 04/16/2023. Activity Level: Activity as Tolerated Discharge Diet: Regular Follow Up Appointments: Eamon Anders MD [Primary Care Provider] - 04/16/23 (Prior scheduled appointment. ) Forms: Vapotherm Info Instructions
[2023-04-15] MEDS: cefTRIAXone 2 GM in 0.9 % SODIUM CHLORIDE Mini-bag 100 ML IVPB (15:33)
[2023-04-15] MEDS: 0.9 % SODIUM CHLORIDE 250 ml IV (15:33)
--- NOTE | 2023-04-15 16:32 | PC.NURSE ---
[facility] called regarding folic acid and multivitamin with folic acid order. Clarified with Dr. Pardo and SILVIO to take both.
--- NOTE | 2023-04-15 18:20 | PC.NURSE ---
End of Shift: Patient pleasant and cooperative. Patient vitally stable, lungs clear, BS WNL, IV intact. Patient did have one low BP today, see vitals. Patient denies lightheadedness or dizziness with ambulation and performing ortho BP's. Patient denies pain. Patient SBA. Patient urinating and tolerating regular diet. CIWA=0
--- NOTE | 2023-04-15 20:00 | PC.NURSE ---
Discharge Summary: Patient discharged home at 1945 with all personal belongings accompanied by significant other. Discharge instructions including diagnosis, medications and follow up appointment discussed with patient and voiced understanding. SL discontinued wit tip intact.
[2023-04-16 15:55] LABS: Urine Osmolality 153 mOsm/kg (50-800)
[2023-04-17 06:29] LABS: Hours Collected Not Provided hr; Total Volume Not Provided mL
== END 2023-04-15 19:45 | disposition home or self-care (01) | DRG 312 ==
LOC: ED 16:01 → MEDSURG 16:41
PROVIDERS: Family Medicine; Admitting Provider Internal Medicine; Emergency Provider Student in an Organized Health Care Education/Training Program; PCP Family Medicine; Visit Provider Internal Medicine
DX: I95.1 Orthostatic hypotension (principal); E87.1 Hypo-osmolality and hyponatremia; N39.0 Urinary tract infection, site not specified; I43 Cardiomyopathy in diseases classified elsewhere; E83.42 Hypomagnesemia; F10.20 Alcohol dependence, uncomplicated; I10 Essential (primary) hypertension; K70.0 Alcoholic fatty liver; I11.9 Hypertensive heart disease without heart failure
CPT/HCPCS: 36415; 71046; 76705; 80048; 80053; 80076; 80306; 81003; 81015; 82077; 82570; 82803; 82977; 83605; 83690; 83735; 83880; 83930; 83935; 84100; 84295; 84300; 84443; 84484; 85025; 85027; 85610; 86140; 87070; 87086; 87186; 87205; 93005; 93306; 97112; 97116; 97161; 99283; 99285; A9153; A9270; C9113; J0696; J3475; J7030; J7050

== ENCOUNTER 2024-04-10 07:51 | Emergency (ER) | payer MEDICARE, OTHER, SELFPAY ==
[2024-04-10] VITALS (8 sets, daily range): BP systolic 122; BP diastolic 79; PULSE 66–78; RESP 16–22; TEMP 35.8; O2SAT 91–98; BMI 21.8
--- NOTE | 2024-04-10 08:04 | ED.EXTPRO ---
HPI - Extremity Problem General Time Seen by Provider: 08:04 Date Seen: 04/10/24 Chief complaint: Shoulder Injury/Pain Stated complaint: fall hit shoulder Time Seen by Provider: 04/10/24 08:03 Source: patient and RN notes reviewed Mode of arrival: ambulatory Limitations: no limitations History of Present Illness HPI Narrative: This 73-year-old female is ambulatory into the ED accompanied by family after tripping and falling on her walk this morning. She is complaining of right shoulder pain. She did not hit her head, no loss of consciousness, no neck or back pain. She feels some pain in the right shoulder with breathing but is having no baseline difficulty breathing, no shortness of breath, no chest pain, no abdominal symptoms. Her shoulder is quite painful, they do wonder if it is perhaps dislocated. She has not eaten or drank since last night. She is having significant pain in the shoulder, feels a little nauseated at this time. Related Data Home Medications ?Medication ?Instructions ?Recorded ?Confirmed atenolol 25 mg tablet 25 mg PO DAILY 04/13/23 04/13/23 losartan 100 mg tablet 100 mg PO DAILY 04/13/23 04/13/23 omeprazole 20 mg capsule,delayed 20 mg PO BID 04/13/23 04/13/23 release cholecalciferol (vitamin D3) 25 25 mcg PO DAILY 04/14/23 04/14/23 mcg (1,000 unit) capsule ferrous sulfate 325 mg (65 mg 325 mg PO DAILY 04/14/23 04/14/23 iron) tablet triamcinolone acetonide 0.1 % 1 applic topical BID PRN 04/14/23 04/14/23 topical cream vitamin B complex (Vitamins B 1 tab PO DAILY 04/14/23 04/14/23 Complex tablet) Previous Rx's ?Medication ?Instructions ?Recorded folic acid 1 mg tablet 1 mg PO DAILY #30 tabs 04/15/23 multivitamin with folic acid 400 1 tab PO DAILY #100 tabs 04/15/23 mcg tablet (Thera) sertraline 50 mg tablet 25 mg (1/2 x 50 mg) PO DAILY #30 04/15/23 tabs thiamine mononitrate (vit B1) 100 250 mg (2.5 x 100 mg) PO BID #60 04/15/23 mg tablet (Vitamin B-1 tabs (mononitrate)) oxycodone 5 mg tablet 5 mg PO Q6H PRN pain #16 tabs 04/10/24 Allergies Allergy/AdvReac Type Severity Reaction Status Date / Time aspirin Allergy Unknown Verified 04/10/24 07:58 Review of Systems Narrative: As per HPI. [facility] Medical History Hypertensive cardiomyopathy ?I11.9 - Hypertensive heart disease without heart failure (ICD-10) ?I43 - Cardiomyopathy in diseases classified elsewhere (ICD-10) Adenomatous colon polyp ?D12.6 - Benign neoplasm of colon, unspecified (ICD-10) Gastric ulcer with hemorrhage ?K25.4 - Chronic or unspecified gastric ulcer with hemorrhage (ICD-10) Abnormal liver enzymes ?R74.8 - Abnormal levels of other serum enzymes (ICD-10) Osteoporosis ?M81.0 - Age-related osteoporosis without current pathological fracture (ICD-10) Alcohol abuse ?F10.10 - Alcohol abuse, uncomplicated (ICD-10) Essential hypertension ?I10 - Essential (primary) hypertension (ICD-10) Anemia ?D64.9 - Anemia, unspecified (ICD-10) Surgical History Status post tonsillectomy ?Z90.89 - Acquired absence of other organs (ICD-10) S/P colonoscopy ?Z98.890 - Other specified postprocedural states (ICD-10) S/P breast lumpectomy ?Z98.890 - Other specified postprocedural states (ICD-10) Social History What is your current living situation?: I presently have a place to live Problems where you live: no known problems Problems where you live details: N/A In the past 12 months, utilities in danger of being shut off: no In past 12 months, lack of transportation kept you from medical appts, meetings, work, or getting things needed for daily living: no In the past 12 mos, have been you worried that your food would run out before you had money to buy more?: never true In the past 12 mos, the food you bought just didn't last and you didn't have money to buy more?: never true Smoking Status: Never smoker Do you use any of these nicotine containing products: None Second hand tobacco smoke exposure: No How often do you have a drink containing alcohol: never AUDIT-C Alcohol total score: 0 Non-prescribed substance use: denies use How often does anyone, including family, friends and others, physically hurt you: never How often does anyone, including family, friends and others, insult or talk down to you: never How often does anyone, including family, friends and others, threaten you with harm: never How often does anyone, including family, friends and others, scream or curse at you: never Exam Const: Vital Signs, click to edit/add: Vital Signs - 24 hr 04/10/24 07:58 04/10/24 08:24 04/10/24 08:46 Temperature 96.4 F L Pulse Rate 66 69 Pulse Rate [Pulse Oximeter] 67 Respiratory Rate 22 Blood Pressure [Le ft Upper Arm] 122/79 Pulse Oximetry 95 98 97 04/10/24 08:54 04/10/24 09:00 04/10/24 09:15 Temperature Pulse Rate 71 73 Pulse Rate [Pulse Oximeter] Respiratory Rate 22 Blood Pressure [Le ft Upper Arm] Pulse Oximetry 98 95 04/10/24 09:30 04/10/24 09:45 Temperature Pulse Rate 78 Pulse Rate [Pulse Oximeter] Respiratory Rate 16 Blood Pressure [Le ft Upper Arm] Pulse Oximetry 91 Patient is alert come interactive and pleasant but in obvious pain. Pupils equal round reactive, sclera clear, face atraumatic, peers symmetric. No midline tenderness of her neck, no adenopathy or neck masses. Lungs are clear, good air entry, no wheezing or crackles, no tachypnea. CV regular rate and rhythm, no murmur, normal S1-S2, no S3-S4. Abdomen is soft, nontender, nondistended, no organomegaly. She was ambulatory into the ED of her own accord. She is nontender over her clavicles, complains of pain over her proximal humerus and the shoulder. Do not feel a definite deformity of the shoulder joint but she certainly has proximal humeral head pain. On palpation of the epicondyles of her right elbow, she states there really is no pain in the shoulder but movement in the arm gives her significant shoulder pain. She has no pain down the form on palpation, no pain in the wrist or hand. Distal sensation and vascularity intact. No complaints of right arm pain or lower extremity issues. Patient was ambulatory into the ED of her own accord. Documenting provider has reviewed patient's vital signs: yes Course Course ED Course: We will stab lotion IV, give her 2 mg IV morphine and 4 mg IV Zofran for symptom control, have her on pulse oximetry. Will obtain x-rays of her right shoulder to differentiate if there is underlying fracture, possible dislocation. At this time I suspect fracture but will get the imaging to further evaluate. Reevaluation(s) Time of Reevaluation #1: 12:08 Reevaluation #1: We are placing the splint on patient. Have discussed hospitalization which would be observation for pain management. We have reviewed this, she is thinking she wants to go home. She understands that this is going to be painful. We did discuss concerns of alcohol use with the narcotic pain medicine. Consultations Consultation #1: Spoke with Dominik LOPEZ from Orthopedics. He is going to talk to the surgeon. He wanted an axillary Y-view but reviewed with him that this patient is significantly painful, doubt that we will get this view on her. Did ask about doing a shoulder CT. He is wondering if this might be surgical. This is patient's right hand dominance. She is reportedly drinking again, was hospitalized last year for electrolyte abnormalities and hyponatremia. Will proceed with obtaining some laboratory testing on her knowing this and the fact that this might be surgical. These issues could have contributed to falling if she has recurrent electrolyte imbalances. 9:37 a.m.: They have requested a right shoulder CT, place patient in a sling or shoulder immobilizer, follow up in clinic next week. Shoulder sling had already been ordered Time: 09:32 Consultation #2: Spoke with Dr. Clayton, will see if we can try different immobilization (cuff and collar) Time: 11:33 Vital Signs Vital signs: Initial Vital Signs Temperature 96.4 F L 04/10/24 07:58 Temperature Source Temporal Artery Scan 04/10/24 07:58 Pulse Rate 67 04/10/24 07:58 Pulse Rhythm Regular 04/10/24 07:58 Respiratory Rate 22 04/10/24 07:58 Blood Pressure 122/79 04/10/24 07:58 Blood Pressure Mean 93 04/10/24 07:58 Blood Pressure Position Sitting 04/10/24 07:58 Pulse Oximetry 95 04/10/24 07:58 Vital Signs Temperature 96.4 F L 04/10/24 07:58 Pulse Rate 67 04/10/24 07:58 Respiratory Rate 22 04/10/24 07:58 Blood Pressure 122/79 04/10/24 07:58 Pulse Oximetry 95 04/10/24 07:58 Temperature 96.4 F L 04/10/24 07:58 Pulse Rate 78 04/10/24 09:30 Respiratory Rate 16 04/10/24 09:45 Blood Pressure 122/79 04/10/24 07:58 Pulse Oximetry 91 04/10/24 09:30 Medications Administered Medications: Discontinued Medications Generic Name Dose Route Start Last Admin Trade Name Bakari PRN Reason Stop Dose Admin Acetaminophen 1,000 mg 04/10/24 09:57 04/10/24 10:27 Acetaminophen 500 Mg Tablet PO 04/10/24 09:58 1,000 mg ONCE ONE Administration Morphine Sulfate 2 mg 04/10/24 08:07 04/10/24 08:20 Morphine 2 Mg/Ml Inj IVP 04/10/24 08:08 2 mg ONCE ONE Administration Morphine Sulfate 2 mg 04/10/24 08:52 04/10/24 09:04 Morphine 2 Mg/Ml Inj IVP 04/10/24 08:53 2 mg ONCE ONE Administration Ondansetron HCl 4 mg 04/10/24 08:07 04/10/24 08:20 Ondansetron 2 Mg/Ml Inj IVP 04/10/24 08:08 4 mg ONCE ONE Administration Oxycodone HCl 5 mg 04/10/24 09:57 04/10/24 10:27 Oxycodone 5 Mg Tablet PO 04/10/24 09:58 5 mg ONCE ONE Administration MDM - Extremity (Nontraumatic) Lab Data Attestation: I reviewed the patient's lab results. Labs: Lab Results 04/10/24 Range/Units 08:05 WBC 7.79 (4.50-11.00) K/uL RBC 4.10 (4.00-5.20) m/uL Hgb 13.3 (12.0-16.0) gm/dL Hct 39.7 (33.0-51.0) % MCV 97 (80-100) fL MCH 32 (26-34) pg MCHC 34 (32-36) gm/dL RDW Coeff of Brianda 12.1 (11.5-15.5) % Plt Count 219 (140-440) K/uL Neut % (Auto) 40.2 L (42.0-72.0) % Lymph % (Auto) 46.7 H (20-44) % [place] % (Auto) 10.1 (0.0-11.0) % Eos % (Auto) 2.2 (0.0-7.0) % Baso % (Auto) 0.3 (0.0-3.0) % Neut # (Auto) 3.10 (1.7-7.0) K/uL Lymph # (Auto) 3.60 H (0.90-2.90) K/uL [place] # (Auto) 0.80 (0.00-0.90) K/UL Eos # (Auto) 0.17 (0.00-0.50) K/uL Baso # (Auto) 0.02 (0.00-0.30) K/uL Abs Immat Gran (auto) 0.04 (0.00-0.30) K/uL Imm/Tot Granulo (auto) 0.5 % Sodium 130 L (135-149) mmol/L Potassium 3.6 (3.6-5.1) mmol/L Chloride 98 (96-114) mmol/L Carbon Dioxide 20 (20-32) mmol/L Anion Gap 12 (7-15) mEq/L BUN 7 (7-30) mg/dL Creatinine 0.8 (0.5-1.5) mg/dL Estimated Creat Clear 45.50 Estimated GFR 77 ml/min Glucose 114 (60-115) mg/dL Calcium 9.4 (8.4-10.6) mg/dL Magnesium 1.5 (1.5-2.6) mg/dL Total Bilirubin 0.6 (0.1-1.5) mg/dL AST 92 H (12-35) U/L ALT 66 H (4-35) U/L Alkaline Phosphatase 103 (40-150) U/L Total Protein 7.3 (6.0-8.3) g/dL Albumin 4.6 (3.3-5.0) g/dL Ethyl Alcohol 0.12 H (0.01-0.03) % Imaging Data XR right shoulder: Attestation: I have reviewed the pertinent imaging results. Radiologist's impression: Patient: ELANA GERARDO Facility:?[facility] Patient ID:?[id number] Site Patient ID:?[id number]. Site :?[id number] Study:?XRay-Shoulder Right 2 VIEW-04/10/2024 8:51:03 AM Ordering Physician:Adrianna Burt Final Report: Indication: Fall, pain. Technique: Two view(s) of the right shoulder. Comparison: None available. Findings: Osseous demineralization. There is an acute displaced surgical neck proximal humerus fracture with approximately 1/2 shaft width medial and anterior displacement. Limited evaluation of glenohumeral alignment due to patient positioning and osseous demineralization; however, there does not appear to be evidence of dislocation. Normal alignment of the acromioclavicular joint. Age-indeterminate minimally displaced fracture of the right 9th rib Impression: 1. Acute displaced surgical neck proximal humerus fracture. 2. Age-indeterminate right 9th rib fracture. Dictated by Consuelo Hardin MD @ 04/10/2024 9:11:22 AM (Electronic Signature) CT- Other: Attestation: I have reviewed the pertinent imaging results. Radiologist's impression: Patient: ELANA GERARDO Facility:?[facility] Patient ID:?[id number] Site Patient ID:?[id number]. Site :?[id number] Study:?CT-Shoulder Right -04/10/2024 10:54:08 AM Ordering Physician:?Sultana Burt Final Report: EXAM: CT OF THE RIGHT SHOULDER, WITHOUT CONTRAST CLINICAL INDICATION: Evaluate complex proximal humeral fracture. COMPARISON PLAIN FILMS: 04/10/2024. COMPARISON CROSS-SECTIONAL IMAGING STUDIES: None. TECHNICAL: CT of the shoulder with axial images. Sagittal oblique and coronal oblique images were created. FINDINGS: OSSEOUS STRUCTURES: Humerus: Acute complex fracture of the proximal humerus. There is impaction and displacement at the surgical neck. The humeral diaphysis is displaced 1.0 cm anteriorly and medially. There is up to 1.3 cm of impaction at the dorsal cortical margin. Small adjacent free fracture fragments. Oblique vertical fracture extends from the surgical neck laterally and results in a large fragment of the superior margin of the humeral head articular surface, greater tuberosity and lesser tuberosity and a humeral head component involving the remaining articular surface. There is up to 1.4 cm of displacement at the superior margin of the articular surface. Impaction with posterior rotation of the majority of the humeral head articular surface relative to the glenoid. Glenoid: No fracture or osseous lesion. Acromion, Scapular body, Clavicle and Ribs: No fracture or osseous lesion. GLENOHUMERAL JOINT: Joint Fluid: Moderate-size glenohumeral joint effusion. Joint Space: No dislocation of the humeral head. No joint space narrowing, hypertrophic change or subchondral cystic change. MUSCLES: Rotator Cuff: No muscle atrophy. Other Muscles: No intramuscular hematoma. No muscle atrophy. CORACOACROMIAL ARCH: Morphology: Type 1 acromion. No downsloping. No subacromial spur. Acromiohumeral Interval: Normal. Coracohumeral Interval: Normal. Bursa: No fluid in the subacromial subdeltoid bursa. ACROMIOCLAVICULAR JOINT: Normal. SOFT TISSUES: Deep soft tissue hemorrhage adjacent to the surgical neck component. No focal hematoma. Calcified granulomatous disease in the chest. IMPRESSION: 1. Acute fracture of the proximal humerus with impaction and displacement at the surgical neck with adjacent free fracture fragments. 2. Oblique vertical fracture in the proximal humerus results in 2 fracture fragments. A fracture component involves the greater tuberosity, superior humeral head and lesser tuberosity and the 2nd component involves the remaining humeral head articular surface. 3. There is impaction and posterior rotation of the majority of the humeral head articular surface relative to the glenoid. 4. Adjacent deep soft tissue hemorrhage without focal hematoma. 5. Calcified granulomatous disease in the chest. Please note that all CT scans at this facility use dose modulation, iterative reconstruction, and/or weight-based dosing when appropriate to reduce radiation dose to as low as reasonably achievable. Dictated by Fitz Oreilly MD @ 04/10/2024 11:12:26 AM (Electronic Signature) Discharge Plan Discharge Clinical Impression: Humerus surgical neck fracture Qualifiers: Encounter type: initial encounter Fracture type: closed Fracture morphology: unspecified fracture morphology Fracture alignment: displaced Laterality: right Qualified Code(s): S42.211A - Unspecified displaced fracture of surgical neck of right humerus, initial encounter for closed fracture Fall Qualifiers: Encounter type: initial encounter Qualified Code(s): W19.XXXA - Unspecified fall, initial encounter Patient Disposition: Home, Self-Care Condition: Stable Instructions: Arm Fracture in Adults (ED) Additional Instructions: Follow up appointment is scheduled for April 14 at 2:40PM, at the [facility]. [facility] [address] [place] [address] Need to use sling for immobilization and comfort. Ice to the shoulder area, 20 minutes on, 10 minutes off; ice as much as you are able to for the next 3-5 days, this will help decrease swelling. Tylenol 1000 mg 3 times a day baseline for pain management. Can supplement with some ibuprofen, follow bottle directions for dosing. Have written for oxycodone for more severe pain. You cannot drink alcohol in use narcotics, will potentially increase her risk for falls, confusion in other complications with co administration. Oxycodone is certainly constipating, take MiraLax 17 g daily while on oxycodone. May also need to use senna 1-2 tabs, once to twice a day as needed to produce routine bowel movements. Prescriptions: New oxycodone 5 mg tablet 5 mg PO Q6H PRN (Reason: pain) Qty: 16 0RF No Action atenolol 25 mg tablet 25 mg PO DAILY omeprazole 20 mg capsule,delayed release(DR/EC) 20 mg PO BID losartan 100 mg tablet 100 mg PO DAILY triamcinolone acetonide 0.1 % cream 1 applic topical BID PRN vitamin B complex [Vitamins B Complex] Tablet 1 tab PO DAILY cholecalciferol (vitamin D3) 25 mcg (1,000 unit) capsule 25 mcg PO DAILY ferrous sulfate 325 mg (65 mg iron) tablet 325 mg PO DAILY folic acid 1 mg Tablet 1 mg PO DAILY Qty: 30 0RF sertraline 50 mg Tablet 25 mg PO DAILY Qty: 30 0RF Rx Instructions: INCREASE TO 50MG (1 FULL TAB) ON 04/23/23 thiamine mononitrate (vit B1) [Vitamin B-1 (mononitrate)] 100 mg Tablet 250 mg PO BID Qty: 60 0RF multivitamin with folic acid [Thera] 400 mcg Tablet 1 tab PO DAILY Qty: 100 0RF Follow Up/Referrals: Eamon Anders MD [Primary Care Provider] - Stand Alone Forms: [employer] Info Instructions
--- NOTE | 2024-04-10 08:07 | CRLHL7_ITS ---
For Patients: As a result of the Cures Act, medical imaging exams and procedure reports are released immediately into your electronic medical record. You may view this report before your referring provider. If you have questions, please contact your health care provider. Indication: Fall, pain. Technique: Two view(s) of the right shoulder. Comparison: None available. Findings: Osseous demineralization. There is an acute displaced surgical neck proximal humerus fracture with approximately 1/2 shaft width medial and anterior displacement. Limited evaluation of glenohumeral alignment due to patient positioning and osseous demineralization; however, there does not appear to be evidence of dislocation. Normal alignment of the acromioclavicular joint. Age-indeterminate minimally displaced fracture of the right 9th rib Impression: 1. Acute displaced surgical neck proximal humerus fracture. 2. Age-indeterminate right 9th rib fracture. Dictated by Consuelo Hardin MD @ 04/10/2024 9:11:22 AM (Electronically Signed)
[2024-04-10] MEDS: ONDANSETRON 2 MG/ML inj 4 MG IVP (08:20)
[2024-04-10] MEDS: MORPHINE 2 MG/ML inj IVP ×2 (08:20→09:04)
--- NOTE | 2024-04-10 09:42 | CRLHL7_ITS ---
For Patients: As a result of the Century Cures Act, medical imaging exams and procedure reports are released immediately into your electronic medical record. You may view this report before your referring provider. If you have questions, please contact your health care provider. EXAM: CT OF THE RIGHT SHOULDER, WITHOUT CONTRAST CLINICAL INDICATION: Evaluate complex proximal humeral fracture. COMPARISON PLAIN FILMS: 04/10/2024. COMPARISON CROSS-SECTIONAL IMAGING STUDIES: None. TECHNICAL: CT of the shoulder with axial images. Sagittal oblique and coronal oblique images were created. FINDINGS: OSSEOUS STRUCTURES: Humerus: Acute complex fracture of the proximal humerus. There is impaction and displacement at the surgical neck. The humeral diaphysis is displaced 1.0 cm anteriorly and medially. There is up to 1.3 cm of impaction at the dorsal cortical margin. Small adjacent free fracture fragments. Oblique vertical fracture extends from the surgical neck laterally and results in a large fragment of the superior margin of the humeral head articular surface, greater tuberosity and lesser tuberosity and a humeral head component involving the remaining articular surface. There is up to 1.4 cm of displacement at the superior margin of the articular surface. Impaction with posterior rotation of the majority of the humeral head articular surface relative to the glenoid. Glenoid: No fracture or osseous lesion. Acromion, Scapular body, Clavicle and Ribs: No fracture or osseous lesion. GLENOHUMERAL JOINT: Joint Fluid: Moderate-size glenohumeral joint effusion. Joint Space: No dislocation of the humeral head. No joint space narrowing, hypertrophic change or subchondral cystic change. MUSCLES: Rotator Cuff: No muscle atrophy. Other Muscles: No intramuscular hematoma. No muscle atrophy. CORACOACROMIAL ARCH: Morphology: Type 1 acromion. No downsloping. No subacromial spur. Acromiohumeral Interval: Normal. Coracohumeral Interval: Normal. Bursa: No fluid in the subacromial subdeltoid bursa. ACROMIOCLAVICULAR JOINT: Normal. SOFT TISSUES: Deep soft tissue hemorrhage adjacent to the surgical neck component. No focal hematoma. Calcified granulomatous disease in the chest. IMPRESSION: 1. Acute fracture of the proximal humerus with impaction and displacement at the surgical neck with adjacent free fracture fragments. 2. Oblique vertical fracture in the proximal humerus results in 2 fracture fragments. A fracture component involves the greater tuberosity, superior humeral head and lesser tuberosity and the 2nd component involves the remaining humeral head articular surface. 3. There is impaction and posterior rotation of the majority of the humeral head articular surface relative to the glenoid. 4. Adjacent deep soft tissue hemorrhage without focal hematoma. 5. Calcified granulomatous disease in the chest. Please note that all CT scans at this facility use dose modulation, iterative reconstruction, and/or weight-based dosing when appropriate to reduce radiation dose to as low as reasonably achievable. Dictated by Fitz Oreilly MD @ 04/10/2024 11:12:26 AM (Electronically Signed)
[2024-04-10 09:50] LABS: Basophils Absolute Auto 0.02 K/uL (0.00-0.30); Basophils Percent Auto 0.3 % (0.0-3.0); Eosinophils Absolute Auto 0.17 K/uL (0.00-0.50); Eosinophils Percent Auto 2.2 % (0.0-7.0); Hematocrit 39.7 % (33.0-51.0); Hemoglobin* 13.3 gm/dL (12.0-16.0); Immature Granulocytes Abs Auto 0.04 K/uL (0.00-0.30); Immature Granulocytes Pct Auto 0.5 %; Lymphocytes Percent Auto 46.7 % (20-44); Mean Corpuscular HGB Conc 34 gm/dL (32-36); Mean Corpuscular Hemoglobin 32 pg (26-34); Mean Corpuscular Volume 97 fL (80-100); Monocytes Percent Auto 10.1 % (0.0-11.0); Neutrophils Percent Auto 40.2 % (42.0-72.0); Platelet Count* 219 K/uL (140-440); RDW Coefficient of Variation % 12.1 % (11.5-15.5); White Blood Count* 7.79 K/uL (4.50-11.00)
[2024-04-10 09:53] LABS: Slide Review Reflex No
[2024-04-10 10:14] LABS: Albumin* 4.6 g/dL (3.3-5.0); Chloride* 98 mmol/L (96-114); Sodium* 130 mmol/L (135-149)
[2024-04-10 10:15] LABS: Potassium* 3.6 mmol/L (3.6-5.1)
[2024-04-10 10:17] LABS: Alkaline Phosphatase* 103 U/L (40-150); Anion Gap 12 mEq/L (7-15); Aspartate Amino Transferase* 92 U/L (12-35); Bilirubin Total* 0.6 mg/dL (0.1-1.5); Blood Urea Nitrogen* 7 mg/dL (7-30); Carbon Dioxide* 20 mmol/L (20-32); Creatinine* 0.8 mg/dL (0.5-1.5); Estimated Glomerular Filt Rate 77 ml/min; Glucose* 114 mg/dL (60-115); Total Protein* 7.3 g/dL (6.0-8.3)
[2024-04-10 10:18] LABS: Alanine Aminotransferase* 66 U/L (4-35); Calcium* 9.4 mg/dL (8.4-10.6); Ethanol* 0.12 % (0.01-0.03); Magnesium* 1.5 mg/dL (1.5-2.6)
[2024-04-10] MEDS: OXYCODONE 5 MG TABLET PO (10:27)
[2024-04-10] MEDS: ACETAMINOPHEN 500 MG TABLET 1000 MG PO (10:27)
== END 2024-04-10 12:34 | disposition home or self-care (01) ==
PROVIDERS: Emergency Provider Family Medicine; PCP Family Medicine
DX: S42.211A Unspecified displaced fracture of surgical neck of right humerus, initial encounter for closed fracture (principal); W18.30XA Fall on same level, unspecified, initial encounter; Y93.01 Activity, walking, marching and hiking
CPT/HCPCS: 36415; 73030; 73200; 80053; 82077; 83735; 85025; 94761; 96374; 96375; 96376; 99284; 99285; A9270; J2270; J2405

== ENCOUNTER 2024-06-23 11:15 | Outpatient (RCR) | payer MEDICARE, OTHER, SELFPAY | END 2024-09-18 10:33 | disposition home or self-care (01) | PROVIDERS: PCP Family Medicine; Visit Provider Orthopaedic Surgery | DX: Z96.619 Presence of unspecified artificial shoulder joint (principal); Z96.611 Presence of right artificial shoulder joint; M25.511 Pain in right shoulder; Z74.09 Other reduced mobility; R53.1 Weakness; Z51.89 Encounter for other specified aftercare | CPT/HCPCS: 97110; 97140; 97161 ==